=== PATIENT | male | born 1970 | race Two or more races ===

== ENCOUNTER 2024-07-17 08:58 | Emergency (ER) | payer OTHER ==
[~2024-07-17] VITALS: Ht 177.8 cm; Wt 68.0 kg
[2024-07-17 09:09] VITALS: BP 141/95; TEMP 98.1; O2SAT 99
== END 2024-07-17 09:51 | disposition home or self-care (01) ==
LOC: ER 09:11
DX: S46.212A Strain of muscle, fascia and tendon of other parts of biceps, left arm, initial encounter (principal); X50.1XXA Overexertion from prolonged static or awkward postures, initial encounter; Y93.89 Activity, other specified; Y92.89 Other specified places as the place of occurrence of the external cause; Y99.8 Other external cause status